=== PATIENT | female | born 1945 | race Caucasian/White ===

== ENCOUNTER 2021-06-18 08:26 | Emergency (ER) | payer MEDICARE ==
[~2021-06-18 08:26] MED LIST: ASPIRIN EC81 M1 PO; BENAZEPRIL-HCT1 EAC1 PO; FLEXERIL5 MG PO; FLONASE ALLER15.8 ML; LEVAQUIN500 MG PO; LOTENSIN HCT 11 EACH PO
[2021-06-18] MEDS ORDERED: XYZAL5 MG PO (11:30)
== END 2021-06-18 11:47 | disposition home or self-care (01) ==
LOC: FER 08:26
DX: R21 Rash and other nonspecific skin eruption (principal); I10 Essential (primary) hypertension; Z88.0 Allergy status to penicillin; Z88.2 Allergy status to sulfonamides; Z88.1 Allergy status to other antibiotic agents; Z79.52 Long term (current) use of systemic steroids
CPT/HCPCS: J3301

== ENCOUNTER 2022-05-25 08:02 | Emergency (ER) | payer MEDICARE ==
[~2022-05-25 08:02] MED LIST changes: +XYZAL5 MG PO
[2022-05-25 09:05] LABS: BILIRUBIN NEGATIVE (NEGATIVE); BLOOD NEGATIVE Ery/uL (NEGATIVE); CLARITY CLEAR (CLEAR); COLOR YELLOW (YELLOW); GLUCOSE (U) NORMAL (NORMAL); LEUKOCYTES NEGATIVE Leu/uL (NEGATIVE); NITRITE NEGATIVE (NEGATIVE); PROTEIN NEGATIVE (NEGATIVE); SPECIFIC GRAVITY <=1.005 (1.001-1.030); UROBILINOGEN 0.2 mg/dL (0.2-1.0)
[2022-05-25 09:30] LABS: BASOPHIL 1.1 % (0-2); EOSINOPHIL 4.1 % (0-7); HCT 40.5 % (37.0-47.0); HGB 13.9 g/dl (12.5-16.0); LYMPHOCYTE 22.7 % (15-48); MCH 32.3 pg (25.0-31.0); MCHC 34.3 g/dL (32.0-36.0); MCV 94.2 fL (78.0-100.0); MONOCYTE 7.7 % (0-12); MPV 9.9 fL (6.0-9.5); NEUTROPHIL 64.2 % (41-80); NRBC 0; PLT 271 K/uL (150-400); RDW 12.8 % (11.5-14.0); WBC 5.4 K/uL (4.0-10.5)
[2022-05-25 10:25] LABS: BUN/CREAT RATIO (CALC) 19.4 RATIO; CREATININE 0.72 mg/dL (0.51-0.95); POTASSIUM 4.1 mmol/L (3.5-5.1)
== END 2022-05-25 11:52 | disposition home or self-care (01) ==
LOC: FER 08:02
PROVIDERS: Emergency Medicine
DX: R30.0 Dysuria (principal); Z88.0 Allergy status to penicillin; Z88.1 Allergy status to other antibiotic agents; Z88.2 Allergy status to sulfonamides
CPT/HCPCS: 36415; 80048; 81003; 85025; 99283